=== PATIENT | male | born 1950 | race Native Hawaiian/Other Pacific Islander ===

== ENCOUNTER 2017-07-31 10:09 | Outpatient (CLI) | payer OTHER, MEDICARE ==
[~2017-07-31 10:09] MED LIST: AMBIEN CR12.5 M1 PO; CLON1TAB18 PO; MOBIC15 MG PO; PARO25TA PO; [UNRECOGNIZED DRUG - CODE] PO
== END 2017-07-31 19:23 | disposition home or self-care (01) ==
LOC: RAD 10:09
DX: Z01.818 Encounter for other preprocedural examination (principal)

== ENCOUNTER 2017-12-01 14:18 | Outpatient (CLI) | payer OTHER, MEDICARE ==
[2017-12-01 14:49] LABS: PLATELET COUNT 205 K/uL (142-355)
== END 2017-12-01 20:03 | disposition home or self-care (01) ==
LOC: LABW 14:18
PROVIDERS: Orthopaedic Surgery
DX: M51.26 Other intervertebral disc displacement, lumbar region (principal)
CPT/HCPCS: 36415; 85027; 85651; 86140

== ENCOUNTER 2017-12-09 10:59 | Outpatient (CLI) | payer OTHER, MEDICARE | END 2017-12-09 19:29 | disposition home or self-care (01) | LOC: LABW 10:59 | DX: R50.9 Fever, unspecified (principal) | CPT/HCPCS: 36415; 87040 ==

== ENCOUNTER 2019-07-07 09:58 | Outpatient (CLI) | payer OTHER, MEDICARE | END 2019-07-07 19:00 | disposition home or self-care (01) | LOC: RAD 09:58 | DX: M10.09 Idiopathic gout, multiple sites (principal); M47.812 Spondylosis without myelopathy or radiculopathy, cervical region; M47.816 Spondylosis without myelopathy or radiculopathy, lumbar region ==

== ENCOUNTER 2022-02-03 08:32 | Outpatient (CLI) | payer OTHER, MEDICARE | END 2022-02-03 20:40 | disposition home or self-care (01) | LOC: CT 08:32 | PROVIDERS: ATTEND Internal Medicine Nephrology | DX: N28.89 Other specified disorders of kidney and ureter (principal) | CPT/HCPCS: 36415; 82565; 84520; Q9963 ==

== ENCOUNTER 2022-06-05 08:44 | Outpatient (CLI) | payer OTHER, MEDICARE | END 2022-06-05 21:22 | disposition home or self-care (01) | LOC: RAD 08:44 | PROVIDERS: ATTEND Nurse Practitioner Family | DX: M06.4 Inflammatory polyarthropathy (principal); M10.09 Idiopathic gout, multiple sites; M19.042 Primary osteoarthritis, left hand; M47.812 Spondylosis without myelopathy or radiculopathy, cervical region; M47.816 Spondylosis without myelopathy or radiculopathy, lumbar region ==